=== PATIENT | male | born 1990 | race Caucasian/White ===

== ENCOUNTER 2017-04-25 06:56 | Day surgery (SDC) | payer OTHER, SELFPAY ==
[2017-04-25] VITALS (10 sets, daily range): BP systolic 101–116; BP diastolic 61–76; PULSE 66–87; RESP 16–18; TEMP 36.4–36.9; O2SAT 97–99; BMI 30.9
--- NOTE | 2017-04-25 08:24 | COLBX_PTH ---
PATIENT: HALEY MCMANUS LOC: EN U#:[id number] AGE/SX: 26/M ROOM: RE04/25/[address]: Dr. Prince Torres MD : 1990 BED: DIS: 04/25/2017 SPEC #: [id number] RECD: 04/25/17 11:40 STATUS: TALIB GISEL #: [id number] QUIRINO: 04/25/17 08:[address]: Prince Torres DEPT: SURGICAL PATHOLOGY RECD BY: Kunal Pepe ENTERED: 04/25/17 13:06 SP TYPE: COLON BX OTHR DR: Dr. Haley Smith MD Tissues: Cecum, NOS Procedures: Surgery Specimen Level IV HEADER OPERATION: Colonoscopy PRE-OP DIAGNOSIS: Abdominal pain, blood in stool TISSUE SUBMITTED: Cecal polyp MICROSCOPIC DIAGNOSIS Cecal polyp, biopsy: Tubular adenoma. AM:viola 04/28/17 MICROSCOPIC DESCRIPTION Slides are reviewed. GROSS DESCRIPTION Received in fixative is one container labeled with the patient's name and designated cecal polyp. The specimen consists of one irregular fragment of light alvarez soft tissue that measures 0.6 x 0.2 x 0.2 cm. The specimen is totally submitted in one cassette. / AM:viola 04/25/17 TC:5 CPT: 58938
--- NOTE | 2017-04-25 08:34 | PCM.OPRPT ---
Report of Operation Date of Procedure: 04/25/17 Pre-Operative Diagnosis: Left-sided abdominal pain and stool change Post-Operative Diagnosis: 9 mm sessile polyp of the cecum. Mild hemorrhoidal changes Surgery/Procedure Performed:: Colonoscopy with snare polypectomy of the cecum Description of Surgical Findings:: Timeout and informed consent was obtained. 26-year-old gent was taken to the endoscopy suite. He was placed in a left lateral decubitus position. In aliquots throughout the procedure he received total 150 mg of Demerol and 5 mg of Versed is intravenous sedation. Digital rectal exam demonstrated some mild hemorrhoidal changes. 1+ smooth prostate no mass lesions. Flexible colonoscope inserted the rectum advanced to a tortuous sigmoid colon with a tight splenic flexure. The scope was then advanced to the transverse colon with some transabdominal pressure was advanced to the cecum. Bowel prep was good. There was a 9 mm sessile polyp of the cecum. A snare cautery blend setting was used to resect and retrieved. Because of the cecal location I placed a hemostatic clip. Hemostasis was completely intact as was bowel viability. The scope was then withdrawn through the ascending transverse descending and sigmoid colon. All surfaces appear to be normal. No focal findings that would correlate with the patient's nonspecific abdominal pain. The scope was retroflexed and hemorrhoidal changes noted but no active disease. Excess fluid and air was aspirated for the procedure was completed with patient tolerating it well. Impression Sessile polyp of the cecum. Pathology pending. Recommendations for follow-up colonoscopy in 3 years. This was the patient's first colonoscopy. Abdominal pain of undetermined etiology. Left testicular finding which on ultrasound not remarkable and pending urology appointment. Pending the patient's ongoing progress if abdominal pain persists he has been instructed then to return to my office for ongoing follow-up. At this time the etiology to his abdominal pain is not determined Cc: Dr. Smith Medications were given at 0811. Scope inserted at 0815. Cecum reached at 0822. Procedure completed at 0830. Prince Torres M.D., F.A.C.S. Type of Anesthesia:: IV Sedation
== END 2017-04-25 09:53 | disposition home or self-care (01) ==
LOC: EN 06:57 → AC 06:58
PROVIDERS: Family Provider Family Medicine; PCP Family Medicine; Visit Provider Surgery
PROC: 0DJD8ZZ Inspection of Lower Intestinal Tract, Via Natural or Artificial Opening Endoscopic (ICD-10-PCS; CPT 45378; principal; 2017-04-25 08:10)
DX: D12.0 Benign neoplasm of cecum (principal); K64.8 Other hemorrhoids; N50.9 Disorder of male genital organs, unspecified; R10.84 Generalized abdominal pain; R19.5 Other fecal abnormalities
CPT/HCPCS: 45385; 88305; J7120

== ENCOUNTER → 2017-05-01 15:39 | Outpatient (CLI) | payer OTHER, SELFPAY ==
[2017-05-01 17:47] LABS: LDH 189 U/L (87-241)
[2017-05-03 09:01] LABS: HCG BETA-SUBUNIT QUANT. < 1 mIU/mL (0-3)
== END ==
PROVIDERS: Family Provider Family Medicine; PCP Family Medicine; Visit Provider Urology
DX: N50.9 Disorder of male genital organs, unspecified (principal)
CPT/HCPCS: 36415; 83001; 83615; 84702